=== PATIENT | male | born 1995 | race Caucasian/White ===

== ENCOUNTER → 2022-11-01 10:22 | Outpatient (BNVA) | payer OTHER, SELFPAY | PROVIDERS: Family Provider Nurse Practitioner Family; Visit Provider Nurse Practitioner Family | DX: S90.01XA Contusion of right ankle, initial encounter (principal); W59.11XA Bitten by nonvenomous snake, initial encounter | CPT/HCPCS: 73630; 80053; 85025; 85384; 85610 ==